=== PATIENT | female | born 1965 | race Caucasian/White ===

== ENCOUNTER 2023-01-09 09:30 | Outpatient (CLI) | payer BC, SELFPAY ==
[2023-01-09 10:11] LABS: Basophils Absolute Auto 0.1 K/mm3 (0.0-0.1); Basophils Percent Auto 1.5 % (0.2-1.2); Eosinophils Absolute Auto 0.1 K/mm3 (0-0.3); Eosinophils Percent Auto 1.5 % (0-4.4); Hematocrit 34.8 % (37.0-47.0); Hemoglobin 11.1 g/dL (12.0-15.0); Immature Granulocyte Absolute 0.02 K/mm3 (0.00-0.031); Immature Granulocyte Percent A 0.5 % (0-0.5); Lymphocytes Absolute Auto 1.32 K/mm3 (0.9-3.2); Lymphocytes Percent Auto 32.3 % (18.3-44.2); Mean Corpuscular HGB Conc 31.9 g/dl (32-36); Mean Corpuscular Hemoglobin 29.8 pg (26-34); Mean Corpuscular Volume 93.3 fl (80-100); Mean Platelet Volume 8.7 fl (7.4-10.4); Monocytes Absolute Auto 0.3 K/mm3 (0.1-0.6); Monocytes Percent Auto 7.6 % (2.6-8.5); Neutrophils Absolute Auto 2.3 K/mm3 (1.3-6.7); Neutrophils Percent Auto 56.6 % (45.5-73.1); Platelet Count Result 304 k/mm3 (150-375); Red Blood Count 3.73 M/mm3 (4.2-5.4); Red Cell Distribution Width 13.3 % (11.5-14.5); White Blood Count 4.1 K/mm3 (4.5-10.0)
[2023-01-09 10:47] LABS: Anion Gap 6 mmol/L (8-16); Blood Urea Nitrogen 13 mg/dL (7-17); Calcium 8.9 mg/dL (8.4-10.2); Carbon Dioxide 27 mmol/L (22-30); Chloride 103 mmol/L (98-107); Estimated Glomerular Filt Rate > 60; Glucose 121 mg/dL (65-110); Potassium 4.6 mmol/L (3.4-5.0); Sodium 136 mmol/L (137-145)
== END 2023-01-09 09:31 | disposition home or self-care (01) ==
LOC: ANHSURGERY 09:35
PROVIDERS: Anesthesiology; PCP Physician Assistant; Visit Provider Obstetrics & Gynecology
DX: R58 Hemorrhage, not elsewhere classified (principal); Z79.899 Other long term (current) drug therapy; Z01.818 Encounter for other preprocedural examination
CPT/HCPCS: 36415; 80048; 85025; 86850; 86900; 86901

== ENCOUNTER 2023-01-11 01:11 | Day surgery (SDC) | payer BC, SELFPAY ==
[2023-01-03 15:09] VITALS: BMI 33.0
--- NOTE | 2023-01-03 15:20 | PC.NURSE ---
Report to the Outpatient Waiting Room, entrance under the green pavilion located off [facility], at time 9:30 on date 01/11/23. Planned Procedure Time: 11:30. Time changes happen often and if your time is changed the preop area will call you the afternoon before. - You and your visitor will be asked to self-screen and do not enter if you have any COVID symptoms. - A mask is optional within the hospital at this time. Patients may have clear liquids (water, carbonated beverages, clear teas, apple juice) until 3 hours prior to surgery with a maximum of 20 ounces. - No food from midnight until time of surgery Take the following medications with a SIP of water the morning of surgery: METOPROLOL DO NOT STOP ANY OF YOUR OTHER PRESCRIPTION MEDICATIONS PRIOR TO SURGERY EXCEPT THE FOLLOWING Medications to discontinue per physician: VITAMINS Date to take last dose: 01/07/23 LAST DOSE OF BRILINTA 01/05/23 PER INSTRUCTIONS ON CHART Please no make-up, nail estonian, hairspray, perfume, deodorant, or body powder the day of surgery. No jewelry (including any body piercings) or valuables the day of surgery, leave them at home. Please take a shower or bath the night before, or the morning of, surgery with an antibacterial soap. Wear comfortable, loose fitting clothing. - Jewelry must be removed prior to entering the operating room. Rings and piercings that are not removed may be cut off. - The hospital will not accept responsibility for valuables. - Please leave all valuables, including medications, at home the day of surgery. If you are going home after surgery, a licensed medical driver must drive you home. - NO public transportation without another adult if you receive anesthesia. - We recommend that an adult stay with you for 24 hours following discharge. - We also recommend that you do not drive, make important decision, drink alcoholic beverages, or take any drugs that were not prescribed by your health care provider for at least 24 hours after your discharge time. Follow any additional instructions given to you from your surgeon. If you or anyone in your household have experienced Covid symptoms in the past week, please notify your surgeon or the nurse liaison at the phone number below for possible testing. Telephone instructions given to PT - NOA MARTINEZ and asked if any additional questions and then verbalized understanding. Patient advised to call surgeon office or pre surgery nurse liaison [phone] if any additional questions.
--- NOTE | 2023-01-09 07:50 | PM.IMHP ---
H&P: HPI History of Present Illness Date/Time: 01/09/23 07:50 Chief Complaint: bleeding refractory to medical therapy Narrative: this is a 57-year-old female was admitted for robotic total vaginectomy and bilateral salpingo-oophorectomy secondary to excessive heavy bleeding. Her hemoglobin has been low and she has had 2 transfusions. She has thickened endometrium. With negative findings she had negative findings on endometrial biopsy. Risks and benefits were reviewed including not exclusive of , aspiration pneumonia, bleeding, transfusion, perforation injury to bowel, bladder, ureters, or other internal organs. She had all questions answered. She received the [employer] handout entitled hysterectomy as well as de Jason handout. She asked to proceed [facility] Social History Social History Years smoked: 20 Smoking status: Current every day smoker Tobacco type: cigarettes Alcohol intake: current Drinks per week: 12 Substance use: never Substance use type: does not use Living arrangements: with family Spiritual care concerns: No Meds Home Medications and Allergies Home Medications Medication Instructions Recorded Confirmed Type aspirin 81 mg chewable tablet 81 mg PO DAILY 01/03/23 01/03/23 History cyanocobalamin (vitamin B-12) 1,000 mcg IM ONCE MONTHLY 01/03/23 01/03/23 History 1,000 mcg/mL injection kit ferrous sulfate 325 mg (65 mg 325 mg PO EVERY OTHER DAY 01/03/23 01/03/23 History iron) tablet losartan 50 mg tablet 50 mg PO DAILY 01/03/23 01/03/23 History metoprolol tartrate 50 mg tablet 50 mg PO DAILY 01/03/23 01/03/23 History omeprazole 20 mg tablet,delayed 20 mg PO DAILY 01/03/23 01/03/23 History release rosuvastatin 20 mg tablet 20 mg PO HS 01/03/23 01/03/23 History spironolactone 25 mg tablet 25 mg PO DAILY 01/03/23 01/03/23 History ticagrelor 90 mg tablet (Brilinta) 90 mg PO Q12H 01/03/23 01/03/23 History Allergies Allergy/AdvReac Type Severity Reaction Status Date / Time No Known Allergies Allergy Verified 01/03/23 15:02 Exam Const: General: cooperative, healthy appearing and comfortable Nutritional Appearance: overweight Orientation/consciousness: oriented to person, oriented to place and oriented to time Resp: Effort & Inspection: normal respiratory effort Cardio: Rate: regular rate Rhythm: regular rhythm Heart sounds: S1 normal heart sound present and S2 normal heart sound present GI: Inspection: normal to inspection Auscultation: normal bowel sounds : External Female Exam: normal external appearance Speculum Exam - Vagina: normal appearance of the vagina and vaginal bleeding Speculum Exam - Cervix: normal appearance of the cervix Bimanual exam- vagina & uterus: enlarged Bimanual Exam- Adnexa, other: normal adnexae Assessment and Plan Assessment and plan (1) Vaginal bleeding: Code(s): N93.9 - Abnormal uterine and vaginal bleeding, unspecified Status: Acute Plan robotic total vaginal hysterectomy and bilateral salpingo-oophorectomy
[2023-01-11] VITALS (12 sets, daily range): BP systolic 112–149; BP diastolic 71–91; PULSE 55–73; RESP 12–20; TEMP 35.9–36.9; O2SAT 95–100
--- NOTE | 2023-01-11 06:22 | WPDHPUPDATE1 ---
History and Physical Update Update Date/Time: 01/11/23 06:22 History and Physical has been reviewed, including an updated exam of the patient. There are NO changes in the patient's condition. Risks, benefits, and alternatives have been discussed and questions answered. Patient agrees to proceed with procedure.
[2023-01-11] MEDS: ACETAMINOPHEN 500 MG TABLET 1000 MG PO (10:17)
[2023-01-11] MEDS: LACTATED RINGERS 1,000 ML 30 ML IV CONT ×2 (10:20→13:05)
[2023-01-11] MEDS: KETOROLAC 15 MG/ML VIAL (*BKC) IV PUSH (10:25)
--- NOTE | 2023-01-11 10:34 | P.PNAN_ITS ---
Anes - Initial Pre Proc Eval Procedure: Operation Date: 01/11/23 11:30 Proposed Procedures p Robotic Assisted Total Vaginal Hysterectomy with Bilateral Salpingo- oophorectomy - Puma Kenyon MD Date/Time: 01/11/23 10:34 Surgeon: Puma Kenyon MD Pre Op Diagnosis: Excessive Bleeding Patient Data Age: 57 Gender: F Height: 1.55 m Weight: 79.4 kg Allergies Allergy/AdvReac Type Severity Reaction Status Date / Time pecan nut Allergy Severe Anaphylactic Verified 01/11/23 10:04 Shock Home Medications Medication Instructions Recorded Confirmed Type aspirin 81 mg chewable tablet 81 mg PO DAILY 01/03/23 01/11/23 History cyanocobalamin (vitamin B-12) 1,000 mcg IM ONCE MONTHLY 01/03/23 01/03/23 History 1,000 mcg/mL injection kit ferrous sulfate 325 mg (65 mg 325 mg PO EVERY OTHER DAY 01/03/23 01/03/23 History iron) tablet losartan 50 mg tablet 50 mg PO DAILY 01/03/23 01/11/23 History metoprolol tartrate 50 mg tablet 50 mg PO DAILY 01/03/23 01/11/23 History omeprazole 20 mg tablet,delayed 20 mg PO DAILY 01/03/23 01/11/23 History release rosuvastatin 20 mg tablet 20 mg PO HS 01/03/23 01/11/23 History spironolactone 25 mg tablet 25 mg PO DAILY 01/03/23 01/11/23 History ticagrelor 90 mg tablet (Brilinta) 90 mg PO Q12H 01/03/23 01/11/23 History hydrocodone 5 mg-acetaminophen 325 1 tablet PO Q4H PRN pain #20 tabs 01/11/23 Rx mg tablet Patient hx anesthesia problems: none Family hx anesthesia problems: none Results Review: All pre-operative results and documents have been reviewed as part of the pre- operative evaluation. [facility] Past Medical History Medical History (Updated 01/11/23 @ 10:35 by Puma Flores MD) CAD (coronary artery disease) HTN (hypertension) Hyperlipidemia Obesity Surgical History Surgical History (Updated 01/11/23 @ 10:42 by Puma Flores MD) History of cholecystectomy History of coronary artery stent placement Social History Social History Years smoked: 20 Smoking status: Current every day smoker Tobacco type: cigarettes Alcohol intake: current Drinks per week: 12 Substance use: never Substance use type: does not use Living arrangements: with family Spiritual care concerns: No Anes - Eval Final PreProcedure Day of Procedure 01/11/23 10:34 Patient weight: obese Heart: regular rate and rhythm Lungs: clear to auscultation Airway: Mallampati scale class II Neurological: alert and oriented Last oral intake: >/= 8 hours ASA classification: III Emergent: no Anesthetic plan: proceed Anesthesia type and monitoring: general ETT and standard monitoring Results Review: All pre-operative results and documents have been reviewed as part of the pre- operative evaluation. Informed Consent: The patient's anesthetic plan and its attendant risks and benefits were discussed with the patient/family/POA. Questions were solicited and answers provided to the satisfaction of the patient/family/POA.
[2023-01-11] MEDS: ceFAZolin 2 GM/D5W 50 ML 2 GM/50 ML BAG IVPB (11:49)
--- NOTE | 2023-01-11 12:43 | SUR.OPER ---
UTERUS [id number]
--- NOTE | 2023-01-11 12:55 | P.OP_ITS ---
Procedure Note - Detailed Date of Procedure 01/11/23 Pre-op Diagnosis Excessive Bleeding Post-op Diagnosis Same Procedure Performed robotic total vaginal hysterectomy and bilateral salpingo-oophorectomy Surgeon Puma Kenyon MD Anesthesia General Indications this 57-year-old female with excessive heavy bleeding with the benign findings on endometrial biopsy Findings enlarged uterus. Normal-appearing ovaries and tubes bilaterally. Description of Procedure The patient was prepped draped in the normal sterile fashion placed in dorsal lithotomy position. Under excellent general trach anesthesia weighted speculum placed in posterior fornix vagina. Anterior lip of the cervix grasped with a single-tooth tenaculum. Uterus sounded to 11cm. Serial dilatation with fragmented out performed followed by passage of 10. PEGGY and 3. Cold cup. Next the 16 Persian catheter was placed in the bladder. The weighted speculum and single-tooth removed and the gloves were changed. Supraumbilical incision was made, Veress needle passed in the abdomen. Abdomen filled with CO2 gas [id number]. The 8mm trocar advanced in the abdomen. Downside visualized no injury seen. Gas reattached pain. Patient placed in Trendelenburg and left and right lateral quadrant incisions made. 8Mm trocars advanced under direct visualization assuring no injury and a right upper quadrant incision made 8mm trocar advanced under direct visualization. The robot was docked. Attention was turned to procedure. Anterior the left round ligament was grasped, burned, cut. A bladder flap was formed by sharply dissecting the parent peritoneum and reflecting the bladder caudally away from the cervix uterus to the opposite round ligament was clamped, burned, cut. Next the infundibulopelvic structure on the left was skeletonized clamping burning cutting and bringing this level previous cut round ligament to remove the left ovary and tube. Removing the right ovary and tube, the infundibulopelvic structure was skeletonized clamping burning cutting and bringing this level of previously cut round ligament. The cardinal broad ligaments on the left were serially skeletonized clamping burning and cutting until the uterine vessels could be seen on the left. These were serially clamped, burned, cut. Next the cardinal broad ligaments on the right were serially skeletonized clamping burning cutting until the uterine vessels could be seen on the right. These were individually clamped, burned, cut. Blanching of the uterus was seen and a colpotomy incision was made. The uterus cervix tubes and ovaries removed thro [facility] the vagina. The vagina was then closed with continuous running 0 the lock from lateral edge to lateral edge back to the midline. Irrigation undertaken to clear. Blood loss estimated 25cc. The robot was undocked. The gas removed from the abdomen. The trocars removed and the incisions closed with 4 Monocryl and glue. Patient went to recovery in satisfactory condition. All sponge, needle, instrument counts were correct. There were no immediate complications Estimated Blood Loss 25 Drains No Packing No Pathology Yes Complications No immediate complications Condition Stable Disposition PACU
[2023-01-11] MEDS: fentaNYL CITRATE INJ (*CRX) 100 MCG/2 ML VIAL 25 MCG IV PUSH ×5 (13:22→13:36)
[2023-01-11] MEDS: DEXTROSE 5%/LACTATED RINGERS 1,000 ML 125 ML IV CONT (14:50)
[2023-01-11] MEDS: KETOROLAC 30 MG/ML VIAL (*BKC) IV PUSH (14:51)
[2023-01-11] MEDS: HYDROcodone/acetaminophen (*CRX) 10-325 MG TABLET 1 TAB PO ×2 (16:16→20:30)
[2023-01-11] MEDS: DOCUSATE SODIUM 100 MG CAPSULE PO (16:16)
[2023-01-11] MEDS: HYDROcodone/acetaminophen (*CRX) 5-325 MG TABLET 1 TAB PO (23:30)
[2023-01-11] MEDS: IBUPROFEN 600 MG TABLET PO (23:30)
[2023-01-12 04:09] VITALS: BP 112/74; PULSE 63; RESP 16; TEMP 36.4; O2SAT 100
[2023-01-12 05:11] LABS: Basophils Absolute Auto 0.1 K/mm3 (0.0-0.1); Basophils Percent Auto 0.6 % (0.2-1.2); Eosinophils Percent Auto 0.2 % (0-4.4); Hemoglobin 9.9 g/dL (12.0-15.0); Immature Granulocyte Absolute 0.02 K/mm3 (0.00-0.031); Immature Granulocyte Percent A 0.2 % (0-0.5); Lymphocytes Absolute Auto 0.78 K/mm3 (0.9-3.2); Lymphocytes Percent Auto 9.7 % (18.3-44.2); Mean Corpuscular HGB Conc 30.9 g/dl (32-36); Mean Corpuscular Hemoglobin 29.4 pg (26-34); Mean Platelet Volume 9.3 fl (7.4-10.4); Monocytes Absolute Auto 0.6 K/mm3 (0.1-0.6); Monocytes Percent Auto 7.2 % (2.6-8.5); Neutrophils Absolute Auto 6.6 K/mm3 (1.3-6.7); Neutrophils Percent Auto 82.1 % (45.5-73.1); Platelet Count Result 243 k/mm3 (150-375); Red Blood Count 3.37 M/mm3 (4.2-5.4); Red Cell Distribution Width 12.9 % (11.5-14.5); White Blood Count 8.1 K/mm3 (4.5-10.0)
--- NOTE | 2023-01-12 07:33 | P.DS_ITS ---
DS: Admitting Diagnosis Discharge Date Admitting Diagnosis vaginal bleeding uterine fibroids DS: Discharge Diagnosis Discharge Diagnosis (1) Vaginal bleeding: Code(s): N93.9 - Abnormal uterine and vaginal bleeding, unspecified Status: Acute (2) Uterine fibroid: Code(s): D25.9 - Leiomyoma of uterus, unspecified Status: Acute DS: Summary Hospital Course Reason for hospitalization: patient was admitted for robotic total vaginal hysterectomy and bilateral salpingo-oophorectomy secondary to vaginal bleeding and uterine fibroids Hospital Course: patient underwent a successful robotic total vaginal hysterectomy bilateral salpingo-oophorectomy with a markedly enlarged uterus. Her hospital course was unremarkable. She remained afebrile. She was up, voiding without difficulty, ambulating, eating regular diet, a generally without complaints. Time Spent with Patient Time attestation: Total time spent providing and/or coordinating discharge services: Exam Const: General: cooperative, healthy appearing, comfortable and overweight Orientation/consciousness: oriented to person, oriented to place and oriented to time HENMT: Head: normal to inspection Resp: Effort & Inspection: normal respiratory effort Cardio: Rate: regular rate Rhythm: regular rhythm Heart sounds: S1 normal heart sound present and S2 normal heart sound present GI: Inspection: normal to inspection and incision ( Wounds are clean dry and intact) DS: Data Data Completed and Pending Pending studies at discharge: Pending at discharge 01/11/23 12:37 Surgical [PTH] Routine Labs on day of discharge: Labs from last 24 hours 01/12/23 04:19 WBC 8.1 RBC 3.37 L Hgb 9.9 L Hct 32.0 L MCV 95.0 MCH 29.4 MCHC 30.9 L RDW 12.9 Plt Count 243 MPV 9.3 Immature Gran % (Auto) 0.2 Neut % (Auto) 82.1 H Lymph % (Auto) 9.7 L [place] % (Auto) 7.2 Eos % (Auto) 0.2 Baso % (Auto) 0.6 Lymph # (Auto) 0.78 L [place] # (Auto) 0.6 Eos # (Auto) 0.0 Baso # (Auto) 0.1 Abs Immat Gran (auto) 0.02 Absolute Neuts (auto) 6.6 Absolute Nucleated RBC 0.0 Nucleated RBC % 0.0 Discharge Plan Discharge Patient Disposition: Home, Self-Care Patient Instructions: Laparoscopic Hysterectomy (DC), Pain Management After Surgery (DC) Stand Alone Forms: General Discharge Instructions Follow-up/Referrals: Puma Brambila MD [Physician] - Discharge Medications: New hydrocodone-acetaminophen 5-325 mg tablet 1 tablet PO Q4H PRN (Reason: pain) Qty: 20 0RF No Action losartan 50 mg Tablet 50 mg PO DAILY spironolactone 25 mg Tablet 25 mg PO DAILY ferrous sulfate 325 mg (65 mg iron) Tablet 325 mg PO EVERY OTHER DAY metoprolol tartrate 50 mg Tablet 50 mg PO DAILY aspirin [Baby Aspirin] 81 mg Tablet,Chewable 81 mg PO DAILY rosuvastatin 20 mg Tablet 20 mg PO HS omeprazole 20 mg Tablet,Delayed Release (Dr/Ec) 20 mg PO DAILY Brilinta 90 mg Tablet 90 mg PO Q12H cyanocobalamin (vitamin B-12) 1,000 mcg/mL Kit 1,000 mcg IM ONCE Patient Comments: TAKES AT BEGINNING OF M
--- NOTE | 2023-01-12 07:36 | PM.GYNPNOP ---
APPRENTICE PATTERN MAKER - A/P Postoperative Procedures: Procedures Operation Date: 01/11/23 11:30 Actual Procedure Side Surgeon p Robotic Assisted Total Vaginal Hysterectomy with Bilateral Salpingo-oophorectomy Bilateral Puma Kenyon MD Postoperative day: 1 Postoperative status: doing well Postoperative plan: routine post-op care, see orders, advance diet and discharge Time Spent With Patient Time: Total time spent is greater than 50% in coordination of care (as documented) at patient's floor/unit and/or counseling patient: Time with patient: less than 15 minutes APPRENTICE PATTERN MAKER- PN:Subj Post-Op Subjective Date/time seen: 01/12/23 07:36 Subjective: patient reports feeling better, pain is well controlled and patient is tolerating oral intake Exam Const: General: cooperative, healthy appearing, comfortable and overweight Orientation/consciousness: oriented to person, oriented to place and oriented to time Resp: Effort & Inspection: normal respiratory effort Cardio: Rate: regular rate Rhythm: regular rhythm Heart sounds: S1 normal heart sound present and S2 normal heart sound present GI: Inspection: normal to inspection and incision ( winter lamp cleaner and intact) APPRENTICE PATTERN MAKER - PN: Obj Data Vital Signs Vital Signs: Vital Signs - 24 hr 01/11/23 10:41 01/11/23 13:05 01/11/23 13:15 Temperature 96.7 F L 97.7 F Pulse Rate 67 67 62 Respiratory Rate 20 12 16 Blood Pressure 136/91 H 118/76 131/71 Pulse Oximetry 100 99 100 Oxygen Delivery Room Air Simple Face Mask Simple Face Mask Oxygen Flow Rate 8 8 01/11/23 13:30 01/11/23 13:45 01/11/23 13:40 Temperature Pulse Rate 60 61 Respiratory Rate 14 14 Blood Pressure 141/83 H 132/84 Pulse Oximetry 100 100 100 Oxygen Delivery Simple Face Mask Room Air Room Air Oxygen Flow Rate 8 01/11/23 14:00 01/11/23 14:15 01/11/23 14:20 Temperature 98 F Pulse Rate 55 L 73 73 Respiratory Rate 14 16 16 Blood Pressure 132/84 149/73 H Pulse Oximetry 95 100 100 Oxygen Delivery Room Air Room Air Oxygen Flow Rate 01/11/23 17:00 01/11/23 19:58 01/11/23 20:30 Temperature 98.1 F Pulse Rate 73 63 Respiratory Rate 16 16 Blood Pressure 147/78 H Pulse Oximetry 100 98 Oxygen Delivery Room Air Room Air Oxygen Flow Rate 01/11/23 23:30 01/11/23 23:30 01/12/23 05:00 Temperature 98.4 F Pulse Rate 62 Respiratory Rate 18 Blood Pressure 112/80 Pulse Oximetry 99 Oxygen Delivery Room Air Room Air Oxygen Flow Rate 01/12/23 04:09 Temperature 97.6 F Pulse Rate 63 Respiratory Rate 16 Blood Pressure 112/74 Pulse Oximetry 100 Oxygen Delivery Oxygen Flow Rate Intake/Output Intake/Output: Intake & Output 01/09/23 01/10/23 01/11/23 01/12/23 23:59 23:59 23:59 23:59 Intake Total 1940 Output Total 300 Balance 1640 Meds/Results Medications: Active Medications Generic Name Dose Route Start Last Admin Trade Name Freq PRN Reason Stop Dose Admin Hydrocodone Bitart/Acetaminophen 1 tab 01/11/23 14:06 01/11/23 20:30 Hydrocodone/Acetaminophen (*Crx) 10-325 Mg Tablet PO 1 tab Q3H PRN Administration Pain Rated 6 or Greater Hydrocodone Bitart/Acetaminophen 1 tab 01/11/23 14:06 01/11/23 23:30 Hydrocodone/Acetaminophen (*Crx) 5-325 Mg Tablet PO 1 tab Q3H PRN Administration Pain Rated 5 or Less Docusate Sodium 100 mg 01/11/23 17:00 01/11/23 16:16 Docusate Sodium 100 Mg Capsule PO 100 mg BID SLOANE Administration Enoxaparin Sodium 40 mg 01/12/23 09:00 Enoxaparin 40 Mg/0.4 Ml Syringe SUB-Q DAILY SLOANE Dextrose/Lactated Ringer's 1,000 mls @ 125 mls/hr 01/11/23 14:06 01/11/23 22:50 Dextrose 5%/Lactated Ringers IV CONT Infused .Q8H SLOANE Infusion Ibuprofen 600 mg 01/11/23 14:06 01/11/23 23:30 Ibuprofen 600 Mg Tablet PO 600 mg Q6H PRN Administration Cramping Ketorolac Tromethamine 30 mg 01/11/23 14:06 01/11/23 14:51 Ketorolac 30 Mg/Ml Vial (*Bkc) IV PUSH 01/16/23 14:05
--- NOTE | 2023-01-12 09:30 | PC.NURSE ---
PT introductions made and plan of care discussed per post op assistant speech language pathologist surgery, pain management, daily care activities and pending discharge to home. PT and spouse both recipients of such instructions and no barriers to learning identified at this time. PT received such instructions per one to one discussion and demonstrations this shift. PT verbalized understanding of such care.
[2023-01-12] MEDS: IBUPROFEN 600 MG TABLET PO (09:49)
[2023-01-12] MEDS: SIMETHICONE 80 MG TAB.CHEW PO (09:50)
[2023-01-12] MEDS: DOCUSATE SODIUM 100 MG CAPSULE PO (09:54)
[2023-01-12] MEDS: HYDROcodone/acetaminophen (*CRX) 5-325 MG TABLET 1 TAB PO (09:55)
[2023-01-12] MEDS: ENOXAPARIN 40 MG/0.4 ML SYRINGE SUB-Q (09:56)
[2023-01-12 10:00] VITALS: BP 127/86; PULSE 57; RESP 18; TEMP 36.9; O2SAT 100
--- NOTE | 2023-01-12 10:58 | PC.NURSE ---
PT discharged to home ambulatory accompanied by spouse and taken to waiting car. Follow up appointments confirmed
== END 2023-01-12 10:58 | disposition home or self-care (01) ==
LOC: ANHSURGERY 09:21 → ANHOB2 14:20
PROVIDERS: PCP Physician Assistant; Visit Provider Obstetrics & Gynecology
PROC: (CPT 58552; principal; 2023-01-11 11:30)
DX: N93.9 Abnormal uterine and vaginal bleeding, unspecified (principal); D25.1 Intramural leiomyoma of uterus; N87.9 Dysplasia of cervix uteri, unspecified; N83.292 Other ovarian cyst, left side; N83.291 Other ovarian cyst, right side; N83.8 Other noninflammatory disorders of ovary, fallopian tube and broad ligament; I10 Essential (primary) hypertension; I25.10 Atherosclerotic heart disease of native coronary artery without angina pectoris; E78.5 Hyperlipidemia, unspecified; Z79.01 Long term (current) use of anticoagulants; Z79.82 Long term (current) use of aspirin; Z95.5 Presence of coronary angioplasty implant and graft; E66.9 Obesity, unspecified; Z68.33 Body mass index [BMI] 33.0-33.9, adult; Z79.891 Long term (current) use of opiate analgesic; F17.210 Nicotine dependence, cigarettes, uncomplicated
CPT/HCPCS: 58552; S2900; 36415; 85025; 88307; 99199; A9270; J0690; J1100; J1170; J1650; J1885; J2250; J2405; J2704; J2710; J3010; J7030; J7120; J7121